=== PATIENT | female | born 1985 | race Caucasian/White ===

== ENCOUNTER → 2021-11-21 09:20 | Outpatient (CLI) | payer OTHER, SELFPAY ==
--- NOTE | 2021-11-21 09:23 | DI.US.S_ITS ---
LIMITED ULTRASOUND OF LEFT BREAST: 11/21/2021 CLINICAL: Palpable lump in Left Breast - hx of breast reduction 11 years ago. No prior exams were available for comparison. Real-time ultrasound of the left breast 9 o'clock region was performed on the areas of interest. Mayfield scale images of the real-time examination were reviewed. IMPRESSION: NEGATIVE There is no sonographic evidence of malignancy. There is no mammographic or sonographic abnormality seen in the left breast to correspond with the palpable abnormality, however, clinical followup is recommended. A 5 year screening mammogram is recommended. This exam was interpreted at Station ID: [id number]. Electronically Signed By: Seema Logan M.D. lk/:11/21/2021 10:27:27 letter sent: Clinical Evaluation Ultrasound BI-RADS: 1 Negative
--- NOTE | 2021-11-21 09:23 | DI.MG.S_ITS ---
BILATERAL DIGITAL DIAGNOSTIC MAMMOGRAM 3D/2D: 11/21/2021 CLINICAL: Baseline, Lump left breast. No prior exams were available for comparison. The tissue of both breasts is predominantly fatty. No significant masses, calcifications, or other findings are seen in either breast. IMPRESSION: INCOMPLETE: NEEDS ADDITIONAL IMAGING EVALUATION There is no mammographic abnormality seen in the left breast to correspond with the palpable abnormality, however, targeted ultrasound of the left breast is recommended and will be performed immediately following this exam. This exam was interpreted at Station ID: [id number]. NOTE: For mammograms, a report in lay terms will be sent to the patient. Approximately 15% of breast malignancies will not be visualized mammographically. In the management of a palpable breast mass, a negative mammogram must not discourage biopsy of a clinically suspicious lesion. Electronically Signed By: Seema Logan M.D. lk/:11/21/2021 09:57:54 ACR BI-RADS Category 0: Incomplete [id number]
== END ==
PROVIDERS: PCP Pediatrics; Referring Provider Obstetrics & Gynecology; Visit Provider Obstetrics & Gynecology
DX: N63.25 Unspecified lump in the left breast, overlapping quadrants (principal); R92.2 Inconclusive mammogram
CPT/HCPCS: 76642; 77066; G0279